=== PATIENT | female | born 1965 ===

== ENCOUNTER 2016-11-09 14:34 | Outpatient (CLI) | payer BC ==
--- NOTE | 2016-11-12 16:37 | Cat Scan Report ---
CT abdomen without contrast: Transverse images are obtained from lung bases to the iliac crest. Coronal and sagittal 2-D reformatted images include. The visualized lung bases are unremarkable. The abdominal organs appear unremarkable. There is a 2.8 cm hypodense left adrenal mass with attenuation predominantly consistent with fat and possibly a small amount of denser tissue inferiorly. The retroperitoneal structures otherwise appear unremarkable. The unopacified bowel and mesentery is normal. No inflammatory or neoplastic lesion suspected. The abdominal aorta is normal in size and contour. Impressions: Left adrenal mass consistent with myelolipoma.
== END 2016-11-09 14:35 | disposition home or self-care (01) ==
LOC: SPVIMAG 14:34
PROVIDERS: ATTEND Internal Medicine Endocrinology, Diabetes & Metabolism
DX: D35.00 Benign neoplasm of unspecified adrenal gland (principal)
CPT/HCPCS: 74150